=== PATIENT | male | born 1980 | race Two or more races ===

== ENCOUNTER 2020-08-20 19:52 | Emergency (ER) | payer MEDICAID ==
[~2020-08-20] VITALS: Ht 185.4 cm; Wt 118.1 kg
--- NOTE | 2020-08-20 20:07 | PHYS DOC ---
General Adult HPI: HPI: Patient is a 40 year old [f__sex] who presents with [] Review of Systems: Review of Systems: Fourteen body systems of review of systems have been reviewed. See HPI for pertinent positives and negative responses, other wren all other systems are negative, non-pertinent or non-contributory Heart Score: C/O Chest Pain: No HEART Score for Chest Pain: HEART Score for Chest Pain Response (Comments) Value History Slighlty/Non-Suspicious 0 ECG Nonspecific Repolarizatio 1 Age < 45 0 Risk Factors 1 or 2 Risk Factors 1 Total 2 Risk Factors: Risk Factors: DM, Current or recent (<one month) smoker, HTN, HLP, family history of CAD, obesity. Risk Scores: Score 0 - 3: 2.5% MACE over next 6 weeks - Discharge Home Score 4 - 6: 20.3% MACE over next 6 weeks - Admit for Clinical Observation Score 7 - 10: 72.7% MACE over next 6 weeks - Early Invasive Strategies Physical Exam: PE: TRAUMA ADULT: A: Patient vocalizing, airway intact B: Bilateral breath sounds present C: 2+ carotid and femoral pulses b/l D: GCS 15 (E4, V5, M6). MAEE E: Patients clothing removed. Log rolled while maintaining c-spine stabilization. Gluteal squeeze intact. General: Appears well and comfortable Skin: Warm, dry. Normal for ethnicity. HEENT: Atraumatic. PERRLA. Moist mucous membranes. No facial deformity. Neck: Trachea midline. In c-collar. No midline c-spine TTP. Respiratory: Normal WOB. CTAB w/o w/r/r. No tachypnea. Cardiovascular: Regular rate and rhythm. Normal peripheral perfusion. No edema. Chest: B/l clavicles intact. No TTP. No ecchymosis. No seatbelt sign. No deformity. Abdomen: Soft. Non tender. No distension. : Normal external genitalia. Back: No midline T or L-spine TTP. No ecchymosis. Musculoskeletal: No swelling or deformity. Neuro: Alert and oriented x 4. MAEE. Psych: Normal affect and mood. Current Patient Data: Labs: Laboratory Tests Test 08/20/20 20:00 08/20/20 21:30 White Blood Count 9.9 x10^3/uL Red Blood Count 4.83 x10^6/uL Hemoglobin 14.4 g/dL Hematocrit 42.2 % Mean Corpuscular Volume 87 fL Mean Corpuscular Hemoglobin 30 pg Mean Corpuscular Hemoglobin Concent 34 g/dL Red Cell Distribution Width 13.1 % Platelet Count 305 x10^3/uL Neutrophils (%) (Auto) 59 % Lymphocytes (%) (Auto) 34 % Monocytes (%) (Auto) 6 % Eosinophils (%) (Auto) 0 % Basophils (%) (Auto) 0 % Neutrophils # (Auto) 5.8 x10^3/uL Lymphocytes # (Auto) 3.4 x10^3/uL Monocytes # (Auto) 0.6 x10^3/uL Eosinophils # (Auto) 0.0 x10^3/uL Basophils # (Auto) 0.0 x10^3/uL Prothrombin Time 11.4 SEC Prothromb Time International Ratio 0.9 Activated Partial Thromboplast Time 26 SEC Sodium Level 143 mmol/L Potassium Level 3.5 mmol/L Chloride Level 105 mmol/L Carbon Dioxide Level 22 mmol/L Anion Gap 16 Blood Urea Nitrogen 13 mg/dL Creatinine 1.2 mg/dL Estimated GFR (Cockcroft-Gault) 67.8 BUN/Creatinine Ratio 11 Glucose Level 95 mg/dL Calcium Level 8.5 mg/dL Total Bilirubin 0.2 mg/dL Aspartate Amino Transf (AST/SGOT) 23 U/L Alanine Aminotransferase (ALT/SGPT) 36 U/L Alkaline Phosphatase 74 U/L Troponin I Quantitative < 0.017 ng/mL Total Protein 7.4 g/dL Albumin 4.1 g/dL Albumin/Globulin Ratio 1.2 Ethyl Alcohol Level 394 mg/dL Urine Collection Type Unknown Urine Color Yellow Urine Clarity Clear Urine pH 5.5 Urine Specific [place] <=1.005 Urine Protein Negative mg/dL Urine Glucose (UA) Negative mg/dL Urine Ketones (Stick) Negative mg/dL Urine Blood Negative Urine Nitrite Negative Urine Bilirubin Negative Urine Urobilinogen Dipstick 0.2 mg/dL Urine Leukocyte Esterase Negative Urine RBC 0 /HPF Urine WBC 0 /HPF Urine Bacteria 0 /HPF Urine Opiates Screen Neg Urine Methadone Screen Neg Urine Barbiturates Neg Urine Phencyclidine Screen Neg Urine Amphetamine/Methamphetamine Neg Urine Benzodiazepines Screen Neg Urine Cocaine Screen Neg Urine Cannabinoids Screen Neg Urine Ethyl Alcohol Pos Current Medications Medications (Trade) Dose Ordered Sig/Ashly Route PRN Reason Start Time Stop Time Status Last Admin Dose Admin Sodium Chloride 1,000 ml @ 1,000 mls/hr Q1H IV 08/20/20 20:15 08/20/20 21:14 DC 08/20/20 21:16 Sodium Chloride 1,000 ml @ 1,000 mls/hr 1X ONCE IV 08/20/20 20:15 08/20/20 21:14 DC 08/20/20 21:16 Vital Signs: Vital Signs Date Time Temp Pulse Resp B/P (MAP) Pulse Ox O2 Delivery O2 Flow Rate FiO2 08/20/20 19:53 97.7 119 18 120/62 (81) 96 Room Air 97.7 Vital Signs Date Time Temp Pulse Resp B/P (MAP) Pulse Ox O2 Delivery O2 Flow Rate FiO2 08/20/20 21:15 112 116/58 (77) 96 Room Air 08/20/20 20:00 20 08/20/20 19:53 97.7 97.7 EKG: EKG: EKG ordered and interpreted by myself at 2005 hrs. as sinus tachycardia with a rate of 125 bpm, unremarkable intervals, no axis deviation, no ischemic findings, no STEMI Radiology/Procedures: Radiology/Procedures: CT HEAD AND CERVICAL SPINE WITHOUT CONTRAST History: Reason: Head injury, falls, altered LOC, alcohol ingestion / Spl. Instr uctions: / History: Comparison: None. Procedure: Axial images are obtained of the head from the skull base through the vertex without IV contrast. Noncontrast helical CT of the cervical spine was performed. Axial, sagittal, and coronal reconstructions were obtained. Findings: The ventricles and sulci are normal for the patient's age. No mass-effect, midline shift, hemorrhage or obvious acute infarction is identified. Basilar cisterns are patent. Bone windows demonstrate no significant calvarial abnormality. There is minimal mucosal thickening of the bilateral maxillary sinuses. Mastoid air cells are well aerated. There is no evidence of acute fracture or acute malalignment of the cervical spine. There are no perched or jumped facet joints. The vertebral body height and alignment are maintained. There is no significant disc space narrowing. There is minimal degenerative endplate spurring. Visualized soft tissues of the neck demonstrate no significant abnormalities. The visualized lung apices are clear. IMPRESSION: 1. No acute intracranial abnormality. 2. No acute fracture of the cervical spine. Electronically signed by: Sam Reynoso MD (08/20/2020 8:29 PM) [facility] ///////////////////// XR CHEST 1V Clinical Indication: Reason: ETOH ABUSE, FALL / Spl. Instructions: / History: Comparison: None. Findings: The left costophrenic angle is excluded. There are low lung volumes. The cardiomediastinal silhouette is normal. Mild bibasilar airspace disease. There is no pneumothorax. No pleural effusion is appreciated. No acute bone abnormality. IMPRESSION: There are low lung volumes. Mild bibasilar airspace disease is probably atelectasis. ////////////// XR KNEE 3 VIEWS_RT Clinical Indication: Reason: ETOH ABUSE, FALL / Spl. Instructions: / History: Comparison: None. Findings: There is no acute fracture or dislocation. The tricompartmental joint spaces are maintained. The patella is in anatomic position. No soft tissue swelling is appreciated radiographically. No radiopaque foreign body is seen. There is no joint effusion. IMPRESSION: No acute fracture. Electronically signed by: Sam Reynoso MD (08/20/2020 8:43 PM) [facility] Electronically signed by: Sam Reynoso MD (08/20/2020 8:38 PM) [facility] /////////////// AP PELVIS Clinical Indication: Reason: ETOH ABUSE, FALL / Spl. Instructions: / History: Comparison: None. Findings: There is no acute pelvic fracture. The sacroiliac joints are symmetric. On single view, the hip joints are intact. The mineralization is normal. Soft tissues unremarkable. There is no diastasis of the symphysis pubis. Visualized lumbar spine is unremarkable. IMPRESSION: No acute pelvic fracture. Electronically signed by: Sam Reynoso MD (08/20/2020 8:41 PM) [facility] /////////////// Course & Med Decision Making: Course & Med Decision Making Pertinent Labs and Imaging studies reviewed. (See chart for details) [] Dragon Disclaimer: Dragon Disclaimer: This electronic medical record was generated, in whole or in part, using a voice recognition dictation system. Departure Departure Impression: Primary Impression: Alcohol intoxication delirium Disposition: LEFT AWOL/ELOPED Condition: STABLE Additional Instructions: You were seen for alcohol intoxication. Your physical exam and comprehensive ER work-up was unremarkable for emergent or surgical findings. You did not have full capacity due to your acutely inebriated state and so, you required time to sober up while in our ER setting. You demonstrated you had good capacity prior to ER departure. As such, it is important you contact your primary care provider next scheduled business day to review ER visit today and discuss next steps of care. You should return to the ED if you develop any new or concerning symptoms. PIPE ESPINOSA DO August 20, 2020 20:07
[2020-08-20 20:14] LABS: BASO % 0 % (0-3); EOS % 0 % (0-3); HEMATOCRIT 42.2 % (39.0-53.0); HEMOGLOBIN 14.4 g/dL (13.0-17.5); LYMPH # 3.4 x10^3/uL (1.0-4.8); LYMPH % 34 % (24-48); MEAN CORPUSCULAR HEMOGLOBIN 30 pg (25-35); MEAN CORPUSCULAR HGB CONC 34 g/dL (31-37); MEAN CORPUSCULAR VOLUME 87 fL (79-100); MONO # 0.6 x10^3/uL (0.0-1.1); MONO % 6 % (0-9); NEUT # 5.8 x10^3/uL (1.8-7.7); NEUT % 59 % (31-73); PLATELET COUNT 305 x10^3/uL (140-400); RED BLOOD COUNT 4.83 x10^6/uL (4.30-5.70); RED CELL DISTRIBUTION WIDTH 13.1 % (11.5-14.5); WHITE BLOOD COUNT 9.9 x10^3/uL (4.0-11.0)
[2020-08-20] MEDS ORDERED: IV NORMAL SALINE 1000ML BAG 1,000 ML IV ONE (20:15)
[2020-08-20] MEDS ORDERED: IV NORMAL SALINE 1000ML BAG 1,000 ML IV SCH (20:15)
[2020-08-20 20:24] LABS: PROTHROMBIN TIME PATIENT 11.4 SEC (11.7-14.0)
[2020-08-20 20:30] LABS: CALCIUM 8.5 mg/dL (8.5-10.1); CREATININE 1.2 mg/dL (0.7-1.3); GFR 67.8; POTASSIUM 3.5 mmol/L (3.5-5.1)
--- NOTE | 2020-08-20 20:32 | RAD ---
PQRS Compliance Statement: One or more of the following individualized dose reduction techniques were utilized for this examinat ion: 1. Automated exposure control 2. Adjustment of the mA and/or kV according to patient size 3. Use of iterative reconstruction technique CT HEAD AND CERVICAL SPINE WITHOUT CONTRAST History: Reason: Head injury, falls, altered LOC, alcohol ingestion / Spl. Instructions: / History: Comparison: None. Procedure: Axial images are obtained of the head from the skull base through the vertex without IV co ntrast. Noncontrast helical CT of the cervical spine was performed. Axial, sagittal, and coronal rec onstructions were obtained. Findings: The ventricles and sulci are normal for the patient's age. No mass-effect, midline shift, hemorrhage or obvious acute infarction is identified. Basilar cistern s are patent. Bone windows demonstrate no significant calvarial abnormality. There is minimal mucosal thickening of the bilateral maxillary sinuses. Mastoid air cells are well ae rated. There is no evidence of acute fracture or acute malalignment of the cervical spine. There are no perched or jumped facet joints. The vertebral body height and alignment are maintained. There is no significant disc space narrowing. There is minimal degenerative endplate spurring. Visualized soft tissues of the neck demonstrate no significant abnormalities. The visualized lung api peter are clear. IMPRESSION: 1. No acute intracranial abnormality. 2. No acute fracture of the cervical spine. Electronically signed by: Sam Reynoso MD (08/20/2020 8:29 PM) [facility]
[2020-08-20 20:36] LABS: ALBUMIN 4.1 g/dL (3.4-5.0); ALBUMIN/GLOBULIN RATIO 1.2 (1.0-1.7); TOTAL BILIRUBIN 0.2 mg/dL (0.2-1.0); TOTAL PROTEIN 7.4 g/dL (6.4-8.2)
--- NOTE | 2020-08-20 20:41 | RAD ---
XR CHEST 1V Clinical Indication: Reason: ETOH ABUSE, FALL / Spl. Instructions: / History: Comparison: None. Findings: The left costophrenic angle is excluded. There are low lung volumes. The cardiomediastinal silhouette is normal. Mild bibasilar airspace disease. There is no pneumothorax. No pleural effusion is appreci ated. No acute bone abnormality. IMPRESSION: There are low lung volumes. Mild bibasilar airspace disease is probably atelectasis. Electronically signed by: Sam Reynoso MD (08/20/2020 8:38 PM) [facility]
--- NOTE | 2020-08-20 20:44 | RAD ---
AP PELVIS Clinical Indication: Reason: ETOH ABUSE, FALL / Spl. Instructions: / History: Comparison: None. Findings: There is no acute pelvic fracture. The sacroiliac joints are symmetric. On single view, the hip joints are intact. The mineralization is normal. Soft tissues unremarkable. There is no diastasis of the symphysis pubis. Visualized lumbar spine is unremarkable. IMPRESSION: No acute pelvic fracture. Electronically signed by: Sam Reynoso MD (08/20/2020 8:41 PM) [facility]
--- NOTE | 2020-08-20 20:46 | RAD ---
XR KNEE 3 VIEWS_RT Clinical Indication: Reason: ETOH ABUSE, FALL / Spl. Instructions: / History: Comparison: None. Findings: There is no acute fracture or dislocation. The tricompartmental joint spaces are maintained. The peacock lla is in anatomic position. No soft tissue swelling is appreciated radiographically. No radiopaque f oreign body is seen. There is no joint effusion. IMPRESSION: No acute fracture. Electronically signed by: Sam Reynoso MD (08/20/2020 8:43 PM) [facility]
[2020-08-20 21:15] VITALS: BP 116/58
[2020-08-20 21:59] LABS: BILIRUBIN,URINE NEGATIVE (NEG); CLARITY,URINE CLEAR; COLOR,URINE YELLOW; NITRITE,URINE NEGATIVE (NEG); PH,URINE 5.5 (<5.0-8.0); PROTEIN,URINE NEGATIVE (NEG-TRACE); UROBILINOGEN,URINE 0.2 mg/dL (0.2 mg/dL)
[2020-08-20 22:04] LABS: BARBITURATES NEG (NEG); BENZODIAZEPINES NEG (NEG); CANNABINOIDS NEG (NEG); COCAINE NEG (NEG); METHADONE NEG (NEG); OPIATES NEG (NEG); PHENCYCLIDINE NEG (NEG)
[2020-08-20 22:06] LABS: AMPHETAMINE/METHAMPHETAMINE NEG (NEG); BACTERIA,URINE 0 /HPF (0-FEW); RBC,URINE 0 /HPF (0-2); WBC,URINE 0 /HPF (0-4)
--- NOTE | 2020-08-21 08:33 | EKG ---
[facility] [address] [place] [address] Test Date: 2020-08-20 Test Time: 20:03:42 Pat Name: GRANT CR Department: Room: Gender: M [employer]: : 1980 Requested By: PIPE ESPINOSA Order Number: [id number] Reading MD: Measurements Intervals [place] Rate: 125 P: 36 IN: 144 QRS: 9 QRSD: 84 T: 18 QT: 298 QTc: 432 Interpretive Statements SINUS TACHYCARDIA OTHERWISE NORMAL ECG RI6.02 No previous ECG available for comparison
== END 2020-08-21 02:20 | disposition left against medical advice (07) ==
LOC: ER 19:52
DX: F10.921 Alcohol use, unspecified with intoxication delirium (principal); Y90.8 Blood alcohol level of 240 mg/100 ml or more; R51.9 Headache, unspecified; G89.11 Acute pain due to trauma; R07.89 Other chest pain; M25.561 Pain in right knee; R10.2 Pelvic and perineal pain; M54.2 Cervicalgia; W18.39XA Other fall on same level, initial encounter; Y93.89 Activity, other specified; Y92.89 Other specified places as the place of occurrence of the external cause; Y99.8 Other external cause status
CPT/HCPCS: 36415; 70450; 71045; 72125; 72170; 73562; 80053; 80307; 81001; 84484; 85025; 85610; 85730; 93005; 96360; 99285; G0480; J7030